=== PATIENT | male | born 1950 | race Caucasian/White ===

== ENCOUNTER 2016-06-06 14:44 | Emergency (ER) | payer OTHER ==
[~2016-06-06] VITALS: Ht 162.6 cm; Wt 67.0 kg
[2016-06-06 14:50] VITALS: Ht 162.6 cm; Wt 67.0 kg
[2016-06-06 15:20] LABS: ADD SCAN DIFF NO
[2016-06-06 15:22] LABS: HEMATOCRIT 39.1 % (42.0-52.0); HEMOGLOBIN 13.5 g/dl (14.0-18.0); LYMPHOCYTES % 23.4 % (15.0-51.0); MEAN CORPUSCULAR HEMOGLOBIN 30.8 pg (29.0-33.0); MEAN CORPUSCULAR HGB CONC 34.5 g/dl (32.0-37.0); MEAN CORPUSCULAR VOLUME 89.3 fl (82.0-101.0); MEAN PLATELET VOLUME 9.2 fl (7.4-10.4); MONOCYTES % 5.6 % (0.0-11.0); NEUTROPHILS % 68.3 % (39.0-77.0); PLATELET COUNT 230 10^3/UL (140-415); RED BLOOD COUNT 4.38 10^6/ul (4.70-6.10); RED CELL DISTRIBUTION WIDTH 11.7 % (11.5-14.5)
[2016-06-06 15:23] LABS: ADD UMIC YES; BASOPHIL # 0.1 10^3/ul (0.0-0.1); BASOPHILS % 0.6 % (0.0-2.0); EOSINOPHILS # 0.1 10^3/ul (0.0-0.5); EOSINOPHILS % 1.8 % (0.0-7.0); LYMPHOCYTES # 1.9 10^3/ul (0.8-2.9); MONOCYTE # 0.5 10^3/ul (0.3-0.9); NEUTROPHIL # 5.5 10^3/ul (1.6-7.5); URINE BILIRUBIN (Dip) NEGATIVE (NEGATIVE); URINE BLOOD (Dip) TRACE (NEGATIVE); URINE COLOR LT. YELLOW (YELLOW); URINE GLUCOSE (Dip) NEGATIVE (NEGATIVE); URINE KETONES (Dip) 15 (NEGATIVE); URINE LEUKOCYTE ESTERASE (Dip) NEGATIVE (NEGATIVE); URINE NITRITE (Dip) NEGATIVE (NEGATIVE); URINE TOTAL PROTEIN (Dip) NEGATIVE (NEGATIVE); URINE UROBILINOGEN (Dip) 0.2 E.U./dL (0.1-1.0)
[2016-06-06 15:33] LABS: ALBUMIN 4.1 g/dl (3.3-4.9); CHLORIDE 105 mmol/L (97-110)
[2016-06-06 15:34] LABS: POTASSIUM 3.4 mmol/L (3.5-5.1); SODIUM 148 mmol/L (135-144)
[2016-06-06 15:35] LABS: BACTERIA,URINE FEW
[2016-06-06 15:36] LABS: ALBUMIN/GLOBULIN RATIO 1.36; ALKALINE PHOSPHATASE 69 IU/L (42-121); ANION GAP 19 (8-16); ASPARTATE AMINO TRANSFERASE 27 IU/L (15-46); BILIRUBIN,INDIRECT 0.8 mg/dl (0-1.1); BILIRUBIN,TOTAL 0.8 mg/dl (0.2-1.3); CARBON DIOXIDE 27 mmol/L (21-31); CREATININE 0.67 mg/dl (0.61-1.24); TOTAL PROTEIN 7.1 g/dl (6.1-8.1)
[2016-06-06 15:37] LABS: ALANINE AMINOTRANSFERASE 24 IU/L (13-69); BLOOD UREA NITROGEN 9 mg/dl (7-20); CALCIUM 9.5 mg/dl (8.4-10.2); GLUCOSE 88 mg/dl (70-220); PROTIME 13.2 Sec (12.2-14.2)
[2016-06-06 15:38] LABS: PARTIAL THROMBOPLASTIN TIME 25.7 Sec (25.0-35.0)
[2016-06-06 15:55] LABS: ACETAMINOPHEN < 10.0 ug/ml (10.0-30.0); ETHANOL < 10.0 mg/dl; SALICYLATE < 1.0 mg/dl (5.0-30.0); TROPONIN-I < 0.012 ng/ml (0.00-0.12)
[2016-06-06] MEDS ORDERED: ATOR40TA68 PO (16:11)
[2016-06-06 16:18] LABS: BARBITURATES Negative (NEGATIVE); BENZODIAZEPINES Negative (NEGATIVE); CANNABINOIDS Negative (NEGATIVE); COCAINE Negative (NEGATIVE); OPIATES Negative (NEGATIVE)
--- NOTE | 2016-06-06 16:54 | RADRPT ---
PROCEDURE: CT brain without contrast CLINICAL INDICATION: Altered mental status TECHNIQUE: CT of the brain without contrast performed on a multidetector CT scanner, with multiplan ar reformats. One or more of the following dose reduction techniques were used: Automated exposure control, adjustment in mA and / or kV according to patient size, use of iterative reconstructive magdi hnique. CTDIvol = 43 mGy; DLP = 720 mGy-cm. COMPARISON: 01/03/2013 FINDINGS: There is a residual small focal area of encephalomalacia in the right thalamus - posterior limb of t he right internal capsule in the area of prior hemorrhage. No acute intracranial hemorrhage is identified. No extra-axial fluid collection is seen. There is no mass effect. No midline shift is identified. Ventricles and sulci are mild to moderately enlarged compatible with volume loss. There are moderate - severe areas of hypodensity in the periventricular - deep white matter which ar e nonspecific but suggestive of chronic small vessel ischemic changes. Ignacio-white differentiation i s otherwise preserved. Atherosclerotic calcifications of the proximal intracranial arteries are noted. Osseous structures are unremarkable. Mastoid air cells and imaged paranasal sinuses grossly clear. IMPRESSION: 1. No evidence of acute intracranial pathology. 2. Small residual focal area of encephalomalacia in the right thalamus/internal capsule, in the are a of prior hemorrhage. 3. Mild to moderate volume loss, with moderate - severe chronic small vessel ischemic changes. RPTAT: VV .Adiel Wagner MD, MD Date Time Electronically viewed and signed by .Adiel Wagner MD, on 06/06/2016 16:54 .O/
--- NOTE | 2016-06-06 17:14 | ERD ---
ER Documentation Chief Complaint Date/Time DATE: 06/06/16 TIME: 17:10 Chief Complaint has left hand tighting and contracture HPI This is a 66-year-old male who presents to the emergency room for stiffness in his left third fourth and fifth digit. This patient does state that he has a previous history of a stroke with residual right left-sided weakness. He states that he feels like his left fingers are "more tight than normal". The patient denies any numbness or tingling in the hand, denies any inability to move the hand, denies any chest pain or palpitations or shortness of breath or diaphoresis. ROS All systems reviewed and are negative except as per history of present illness. Medications Home Meds Reported Medications Atorvastatin* (Atorvastatin*) 40 Mg Tablet, 40 MG PO QHS, #30 TAB 06/06/16 Allergies Allergies: Coded Allergies: No Known Allergy (Unverified , 01/03/13) PMhx/Soc History of Surgery: Yes ([facility] WITH STENT two separte times total 6 times) Anesthesia Reaction: No Hx Neurological Disorder: No Hx Respiratory Disorders: No Hx Cardiac Disorders: Yes (CAD) Hx Psychiatric Problems: No Hx Miscellaneous Medical Probl: No (stroke ) Hx Alcohol Use: No Hx Substance Use: No Hx Tobacco Use: No Smoking Status: Former smoker Physical Exam Vitals Vital Signs Date Time Temp Pulse Resp B/P Pulse Ox O2 Delivery O2 Flow Rate FiO2 06/06/16 14:50 98.1 63 18 156/106 96 Physical Exam INITIAL VITAL SIGNS: Reviewed by me GENERAL: The patient is well developed and appropriate for usual state of health in no apparent distress HEENT: Pupils equal, round, and reactive to light. EOMI. There is no scleral icterus. NECK: C-spine is soft and supple, there is no meningismus. There is no cervical lymphadenopathy. LUNGS: Clear to auscultation bilaterally. There are no rales, wheezes or rhonchi. HEART: Regular rate and rhythm, no murmurs, clicks, rubs or gallops. ABDOMEN: Soft, non-tender, non-distended. There are bowel sounds in all four quadrants. No rebound or guarding. EXTREMITIES: There is no peripheral cyanosis or edema. No focal swelling or erythema. NEUROLOGICAL: The patient moves all four extremities with 5/5 strength. Cranial nerves II - XII are intact. Normal gait. Alert and oriented SKIN: There is no apparent rash or petechiae. HEME/LYMPHATIC: There is no evidence of excessive bruising or lymphedema. PSYCHIATRIC: The patient does not appear anxious or depressed. Result Diagram: 06/06/16 1505 06/06/16 1505 Results 24 hrs Laboratory Tests Test 06/06/16 15:05 Acetaminophen Level < 10.0ug/ml Activated Partial Thromboplast Time 25.7Sec Alanine Aminotransferase (ALT/SGPT) 24IU/L Albumin 4.1g/dl Albumin/Globulin Ratio 1.36 Alkaline Phosphatase 69IU/L Anion Gap 19 Aspartate Amino Transf (AST/SGOT) 27IU/L Basophils # 0.110^3/ul Basophils % 0.6% Blood Urea Nitrogen 9mg/dl Calcium Level 9.5mg/dl Carbon Dioxide Level 27mmol/L Chloride Level 105mmol/L Creatinine 0.67mg/dl Direct Bilirubin 0.00mg/dl Eosinophils # 0.110^3/ul Eosinophils % 1.8% Ethyl Alcohol Level < 10.0mg/dl Globulin 3.00g/dl Glucose Level 88mg/dl Hematocrit 39.1% Hemoglobin 13.5g/dl INR International Normalized Ratio 1.00 Indirect Bilirubin 0.8mg/dl Lymphocytes # 1.910^3/ul Lymphocytes % 23.4% Mean Corpuscular Hemoglobin 30.8pg Mean Corpuscular Hemoglobin Concent 34.5g/dl Mean Corpuscular Volume 89.3fl Mean Platelet Volume 9.2fl Monocytes # 0.510^3/ul Monocytes % 5.6% Neutrophils # 5.510^3/ul Neutrophils % 68.3% Nucleated Red Blood Cells # 0.010^3/ul Nucleated Red Blood Cells % 0.0/100WBC Platelet Count 45652^3/UL Potassium Level 3.4mmol/L Prothrombin Time 13.2Sec Prothrombin Time Ratio 1.0 Red Blood Count 4.3810^6/ul Red Cell Distribution Width 11.7% Salicylates Level < 1.0mg/dl Sodium Level 148mmol/L Total Bilirubin 0.8mg/dl Total Protein 7.1g/dl Troponin I < 0.012ng/ml Urine Amphetamines Screen Negative Urine Bacteria FEW Urine Barbiturates Negative Urine Benzodiazepines Screen Negative Urine Bilirubin NEGATIVE Urine Cannabinoids Negative Urine Clarity CLEAR Urine Cocaine Screen Negative Urine Color LT. YELLOW Urine Epithelial Cells OCCASIONAL Urine Glucose NEGATIVE% Urine Hemoglobin TRACE Urine Ketones 15 Urine Leukocyte Esterase NEGATIVE Urine Microscopic RBC 2-5/HPF Urine Microscopic WBC NONE SEEN/HPF Urine Nitrite NEGATIVE Urine Opiates Screen Negative Urine Specific [place] 1.015 Urine Total Protein NEGATIVE Urine Urobilinogen 0.2 E.U./dL Urine pH 6.5 White Blood Count 8.010^3/ul Current Medications Medications (Trade) Dose Ordered Sig/Shagufta Route PRN Reason Start Time Stop Time Status Last Admin Dose Admin Potassium Chloride (Klor-Con 10) 10 meq ONCE ONCE PO 06/06/16 17:30 06/06/16 17:31 UNV Procedures/MDM CT head without: 1. No evidence of acute intracranial pathology. 2. Small residual focal area of encephalomalacia in the right thalamus/ internal capsule, in the area of prior hemorrhage. 3. Mild to moderate volume loss, with moderate - severe chronic small vessel ischemic changes. EKG: Rate/Rhythm: [Normal Sinus Rhythm] QRS, ST, T-waves: [No changes consistent w/ acute ischemia] Impression: [No evidence of ischemia or arrhythmia] This 66-year-old male presents to the ER for evaluation of tightness in his left third fourth and fifth digit. This patient does suffer from a previous stroke with mild residual weakness in the left upper extremity. When I evaluated this patient he had no focal neurological deficits, he was able to move his upper extremities and lower extremities with 5 out of 5 strength. He was alert and oriented to person place and time, no slurred speech, and no visible deficits. Lab work was obtained including a CT which does not show any acute pathology. The patient did have a potassium of 3.4 and did receive 10 mEq of potassium by mouth. The patient is likely suffering from paresthesias, I do not feel this patient is having a stroke at this time. This patient will be discharged into the care of his family member was at bedside and is comfortable taking him home at this time. She states that the patient is at his baseline mental status and that he is not displaying any neuro deficits at this time. This patient did have an elevated blood pressure when he first came into the emergency room, and was given 10 mg of hydralazine with resolution. New blood pressure is 146/86. Patient's blood pressure was elevated (>120/80) but appears stable without evidence of hypertension emergency or urgency. The patient was counseled about the risks of hypertension and urged to pursue outpatient monitoring and therapy within a week with their primary care physician. Departure Diagnosis: Primary Impression: Paresthesias Additional Impressions: Hypokalemia Normocytic anemia Hypertension Condition: Stable MIGUEL ÁNGEL RYDER DO Jun 06, 2016 17:14
[2016-06-06] MEDS ORDERED: POTASSIUM CHLORIDE (SR) 10 MEQ TAB PO ONE (17:30)
[2016-06-06 17:50] VITALS: BP 153/85; PULSE 84; RESP 18; TEMP 98.1
== END 2016-06-06 17:51 | disposition home or self-care (01) ==
LOC: E/R 14:44
DX: R20.2 Paresthesia of skin (principal); E87.6 Hypokalemia; I10 Essential (primary) hypertension; D64.9 Anemia, unspecified; I25.10 Atherosclerotic heart disease of native coronary artery without angina pectoris; R40.2142 Coma scale, eyes open, spontaneous, at arrival to emergency department; R40.2252 Coma scale, best verbal response, oriented, at arrival to emergency department; R40.2362 Coma scale, best motor response, obeys commands, at arrival to emergency department; Z87.891 Personal history of nicotine dependence; Z95.5 Presence of coronary angioplasty implant and graft
CPT/HCPCS: 36415; 70450; 80053; 80306; 80307; 81001; 81003; 84484; 85025; 85610; 85730; 93005

== ENCOUNTER 2018-04-18 13:14 | Emergency (ER) | payer OTHER ==
[~2018-04-18] VITALS: Ht 167.6 cm; Wt 68.2 kg
[~2018-04-18 13:14] MED LIST: ATOR40TA68 PO
[2018-04-18 13:27] VITALS: Ht 167.6 cm; Wt 68.2 kg
--- NOTE | 2018-04-18 13:39 | ERD ---
ER Documentation Chief Complaint Chief Complaint NEAR SYNCOPAL EPISODE HPI This 68-year-old male who presents for evaluation of a near syncopal episode. Patient had no chest pain or shortness of breath prior, he states that he is not drinking as much as he usually does earlier today. He denies fever, denies nausea or vomiting. He had no head trauma. ROS All systems reviewed and are negative except as per history of present illness. Medications Home Meds Reported Medications Clopidogrel Bisulfate (Clopidogrel) 75 Mg Tablet, 75 MG PO DAILY, #30 TAB 04/18/18 Losartan Potassium* (Losartan Potassium*) 25 Mg Tablet, 25 MG PO DAILY, TAB 04/18/18 Atorvastatin* (Atorvastatin*) 40 Mg Tablet, 40 MG PO QHS, #30 TAB 04/18/18 Discontinued Reported Medications Atorvastatin* (Atorvastatin*) 40 Mg Tablet, 40 MG PO QHS, #30 TAB 06/06/16 Allergies Allergies: Coded Allergies: No Known Allergy (Unverified , 04/18/18) PMhx/Soc History of Surgery: Yes ([facility] WITH STENT two separte times total 6 times) Anesthesia Reaction: No Hx Neurological Disorder: No Hx Respiratory Disorders: No Hx Cardiac Disorders: Yes (CAD) Hx Psychiatric Problems: No Hx Miscellaneous Medical Probl: No (stroke ) Hx Alcohol Use: No Hx Substance Use: No Hx Tobacco Use: No Physical Exam Vitals Vital Signs Date Temp Pulse Resp B/P (MAP) Pulse Ox O2 O2 Flow FiO2 Time Delivery Rate 04/18/18 97.0 49 24 139/66 98 Room Air 15:34 (90) 04/18/18 50 24 129/63 98 Room Air 13:51 (85) 04/18/18 97.7 53 21 116/62 100 13:27 (80) Physical Exam Const: No acute distress Head: Atraumatic Eyes: Normal Conjunctiva ENT: Normal External Ears, Nose and Mouth. Neck: Full range of motion. No meningismus. Resp: Clear to auscultation bilaterally Cardio: Regular rate and rhythm, no murmurs Abd: Soft, non tender, non distended. Normal bowel sounds Skin: No petechiae or rashes Back: No midline or flank tenderness Ext: No cyanosis, or edema. There is a 2.5 cm vertical laceration over the right mills. There is no bony tenderness or deformity, no deformities, pulses are intact distally, strength is 5 out of 5, sensation is intact to light touch Neur: Awake and alert Psych: Normal Mood and Affect Result Diagram: 04/18/18 1335 04/18/18 1335 Results 24 hrs Laboratory Tests Test 04/18/18 13:35 White Blood Count 6.7 10^3/ul Red Blood Count 4.11 10^6/ul Hemoglobin 12.5 g/dl Hematocrit 37.5 % Mean Corpuscular Volume 91.2 fl Mean Corpuscular Hemoglobin 30.4 pg Mean Corpuscular Hemoglobin Concent 33.3 g/dl Red Cell Distribution Width 12.5 % Platelet Count 271 10^3/UL Mean Platelet Volume 9.7 fl Immature Granulocytes % 0.100 % Neutrophils % 60.6 % Lymphocytes % 31.1 % Monocytes % 5.4 % Eosinophils % 2.1 % Basophils % 0.7 % Nucleated Red Blood Cells % 0.0 /100WBC Immature Granulocytes # 0.010 10^3/ul Neutrophils # 4.1 10^3/ul Lymphocytes # 2.1 10^3/ul Monocytes # 0.4 10^3/ul Eosinophils # 0.1 10^3/ul Basophils # 0.1 10^3/ul Nucleated Red Blood Cells # 0.0 10^3/ul Prothrombin Time 13.4 Sec Prothrombin Time Ratio 1.0 INR International Normalized Ratio 1.01 Sodium Level 147 mmol/L Potassium Level 3.3 mmol/L Chloride Level 106 mmol/L Carbon Dioxide Level 27 mmol/L Anion Gap 14 Blood Urea Nitrogen 11 mg/dl Creatinine 0.90 mg/dl Est Glomerular Filtrat Rate mL/min > 60 mL/min Glucose Level 119 mg/dl Calcium Level 9.9 mg/dl Troponin I < 0.012 ng/ml Current Medications Medications Dose Sig/Shagufta Start Time Status Last (Trade) Ordered Route PRN Stop Time Admin Dose Reason Admin Diphtheria/ 0.5 ml ONCE ONCE 04/18/18 DC Tetanus/Acell IM* 14:00 Pertussis 04/18/18 14:01 (Adacel) Lidocaine 20 ml ONCE ONCE 04/18/18 DC (Xylocaine SC 14:00 1% (Mdv) 20 04/18/18 14:01 ml) Procedures/MDM This 68-year-old male who presents for fashion of a near syncopal episode. Patient had no chest pain, no prodrome prior, he is well-appearing and nontoxic, at this point have a low suspicion for cardiac etiology of his syncopal episode, his EKG showed no rhythm abnormalities, and his troponin was negative. He was able to ambulate without difficulty, laceration was repaired without complication, strict return precautions given at discharge patient was in no acute distress. Laceration Repair by me: Anesthesia: 1% lidocaine with 1% epinephrine locally Location: Region Tendon/Joint/Nerves: No injury Foreign body: None detected after copious irrigation and exploration Technique: Simple Interrupted Sutures Complexity: No subcutaneous sutures/mucosal repair/edge excision Post Closure Length: 2.57 cm Patient's bleeding was easily controlled in the department and there is no indication of anemia. No evidence of compartment syndrome, neurologic injury, vascular injury, open joint, tendon laceration, or foreign body. Patient is appropriate for outpatient follow up. 48 hour wound check. Scar minimization instructions given. EKG: Rate/Rhythm: Sinus bradycardia QRS, ST, T-waves: No changes consistent w/ acute ischemia Impression: No evidence of ischemia or arrhythmia Departure Diagnosis: Primary Impression: Syncope Syncope type: unspecified Qualified Codes: R55 - Syncope and collapse Condition: Stable SAMMI MCKENZIE MD Apr 18, 2018 13:39
[2018-04-18] MEDS ORDERED: DIPHTH/TET/ACEL PERTUSS (ADULT) 0.5 ML VIAL IM* ONE (14:00)
[2018-04-18] MEDS ORDERED: LIDOCAINE 1% (MDV) 20 ML INJ SC ONE (14:00)
[2018-04-18] MEDS ORDERED: CLOP75TA27 PO (15:23)
[2018-04-18] MEDS ORDERED: LOSA25TA12 PO (15:23)
[2018-04-18] MEDS ORDERED: ATOR40TA68 PO (15:23)
[2018-04-18 15:34] VITALS: BP 139/66; PULSE 49; RESP 24
== END 2018-04-18 15:55 | disposition home or self-care (01) ==
LOC: E/R 13:14
DX: R55 Syncope and collapse (principal); S81.811A Laceration without foreign body, right lower leg, initial encounter; I25.10 Atherosclerotic heart disease of native coronary artery without angina pectoris; I25.2 Old myocardial infarction; X58.XXXA Exposure to other specified factors, initial encounter; Y92.9 Unspecified place or not applicable; Z98.61 Coronary angioplasty status; Z79.01 Long term (current) use of anticoagulants; Z23 Encounter for immunization
CPT/HCPCS: 36415; 71045; 80048; 84484; 85025; 85610; 90471; 90715; 93005